=== PATIENT | male | born 1975 | race Caucasian/White ===

== ENCOUNTER 2023-10-08 14:07 | Emergency (ER) | payer BC ==
[2023-10-08] MEDS: Dexamethasone 4 MG Tab PO STA (14:42)
[2023-10-08] MEDS: Ketorolac 30 MG/ML SDV IM STA (14:42)
== END 2023-10-08 15:11 | disposition home or self-care (01) ==
LOC: MW.ED 14:07
DX: K04.7 Periapical abscess without sinus (principal); Z75.8 Other problems related to medical facilities and other health care
CPT/HCPCS: 96372; 99283; J1885; J8540

== ENCOUNTER 2024-05-08 21:54 | Emergency (ER) | payer BC ==
[2024-05-08] MEDS: Dexamethasone 4 MG/ML SDV IM ONE (22:18)
[2024-05-08] MEDS ORDERED: HYDROmorphone 0.5 MG/0.5 ML Syringe IM ONE (23:17)
[2024-05-08] MEDS ORDERED: Naloxone 0.4 MG/ML SDV IVPUSH PRN (23:17)
== END 2024-05-08 23:43 | disposition home or self-care (01) ==
LOC: MW.ED 21:54
DX: M54.6 Pain in thoracic spine (principal); Z79.899 Other long term (current) drug therapy
CPT/HCPCS: 93005; 96372; 99283; J1100

== ENCOUNTER 2024-08-21 14:42 | Emergency (ER) | payer BC ==
[2024-08-21] MEDS: Dexamethasone 4 MG Tab PO ONE (15:07)
[2024-08-21] MEDS: Ibuprofen 600 MG Tab PO ONE (15:08)
[2024-08-21] MEDS: Acetaminophen 500 MG Tab PO ONE (15:08)
== END 2024-08-21 16:42 | disposition home or self-care (01) ==
LOC: MW.ED 14:42
DX: J06.9 Acute upper respiratory infection, unspecified (principal); B97.89 Other viral agents as the cause of diseases classified elsewhere; R03.0 Elevated blood-pressure reading, without diagnosis of hypertension
CPT/HCPCS: 87428; 87651; 99283; A9270; J8540

== ENCOUNTER 2024-08-24 08:58 | Emergency (ER) | payer BC ==
[2024-08-24 09:46] LABS: BASOPHILS ABSOLUTE AUTO 0.07 K/uL (0.00-0.20); BASOPHILS PERCENT AUTO 0.7 % (0.0-1.0); EOSINOPHILS ABSOLUTE AUTO 0.16 K/uL (0.00-0.45); EOSINOPHILS PERCENT AUTO 1.6 % (0.0-6.0); HEMATOCRIT 48.2 % (42.0-52.0); HEMOGLOBIN 16.6 g/dL (14.0-18.0); IMMATURE GRAN ABSOLUTE AUTO 0.15 K/uL (0.00-0.05); IMMATURE GRAN PERCENT AUTO 1.5 % (0.0-0.4); LYMPHOCYTES ABSOLUTE AUTO 3.27 K/uL (1.00-4.80); LYMPHOCYTES PERCENT AUTO 33.3 % (24.0-44.0); MEAN CORPUSCULAR HEMOGLOBIN 30.7 pg (28.0-32.0); MEAN CORPUSCULAR HGB CONC 34.4 g/dL (32.0-36.0); MEAN CORPUSCULAR VOLUME 89.3 fL (83.0-99.0); MEAN PLATELET VOLUME 8.8 fL (9.4-12.4); MONOCYTES PERCENT AUTO 8.1 % (0.0-8.0); NEUTROPHILS ABSOLUTE AUTO 5.38 K/uL (1.80-7.70); NEUTROPHILS PERCENT AUTO 54.8 % (41.0-71.0); PLATELET COUNT,PLT 282 K/uL (150-400); WHITE BLOOD CELL COUNT,WBC 9.83 K/uL (3.9-11.3)
[2024-08-24] MEDS: Albuterol/Ipratropium 3.0-0.5 MG/3 ML Neb Soln NEB ONE (09:48)
[2024-08-24 10:27] LABS: A/G RATIO 0.9 (0.9-1.6); ALBUMIN 3.5 g/dL (3.4-5.0); BILIRUBIN TOTAL 0.5 mg/dL (0.2-1.0); CARBON DIOXIDE,CO2 29.6 mmol/L (21.0-32.0); CREATININE 1.2 mg/dL (0.8-1.3); EST CRCL DRUG DOSING (CG) 71.15 mL/min; MAGNESIUM 1.9 mg/dL (1.8-2.4); PROTEIN TOTAL,TP 7.4 g/dL (6.4-8.2)
== END 2024-08-24 11:15 | disposition home or self-care (01) ==
LOC: MW.ED 08:58
DX: R05.2 Subacute cough (principal); R06.02 Shortness of breath; Z79.899 Other long term (current) drug therapy
CPT/HCPCS: 36415; 71045; 80053; 83735; 83880; 84484; 85025; 94640; 99285; J7620; 99283; A9270-GY

== ENCOUNTER 2024-09-21 17:51 | Emergency (ER) | payer BC | END 2024-09-21 20:32 | disposition home or self-care (01) | LOC: MW.ED 17:51 | DX: J06.9 Acute upper respiratory infection, unspecified (principal); Z75.3 Unavailability and inaccessibility of health-care facilities | CPT/HCPCS: 71045; 71045-26; 87428-QW; 87651; 99283 ==

== ENCOUNTER 2025-04-23 23:15 | Emergency (ER) | payer BC ==
[2025-04-24] MEDS: Acetaminophen/HYDROcodone 325-5 MG Tab PO ONE (00:05)
[2025-04-24] MEDS: Diphtheria,Pertussis(Acell),Tetanus Vaccine 0.5 ML Syringe IM ONE (00:06)
[2025-04-24] MEDS: Water For Injection, Sterile 10 ML SDV INJECT ONE (00:08)
[2025-04-24] MEDS: Lidocaine 1% PF 2 ML SDV INJECT ONE (00:10)
== END 2025-04-24 01:56 | disposition home or self-care (01) ==
LOC: MW.ED 23:15
DX: S61.411A Laceration without foreign body of right hand, initial encounter (principal); S80.12XA Contusion of left lower leg, initial encounter; Z88.5 Allergy status to narcotic agent; Z23 Encounter for immunization; Z79.899 Other long term (current) drug therapy; W10.9XXA Fall (on) (from) unspecified stairs and steps, initial encounter
CPT/HCPCS: 12004; 73130; 73590; 90471; 90715; 96372; 99283; A9270; J0690; J2003

== ENCOUNTER 2025-05-09 01:29 | Emergency (ER) | payer BC | END 2025-05-09 02:20 | disposition home or self-care (01) | LOC: MW.ED 01:29 | DX: Z48.02 Encounter for removal of sutures (principal) | CPT/HCPCS: 99281; 99283 ==